=== PATIENT | male | born 1975 ===

== ENCOUNTER 2024-09-16 09:10 | Day surgery (SDC) | payer OTHER ==
[~2024-09-16] VITALS: Ht 185.4 cm; Wt 112.8 kg
[~2024-09-16 09:10] MED LIST: Lidocaine 2%-Epineph 1:100000 20 ML MDV ONE; Lidocaine HCl 2% 10 ML SDA ONE; NS 500 ML IV ONE
[2024-09-16] MEDS ORDERED: LISI20 PO (10:08)
[2024-09-16] MEDS ORDERED: HYDCHL25 PO (10:08)
[2024-09-16] MEDS ORDERED: ATOR20 PO (10:08)
[2024-09-16] MEDS ORDERED: ACYC400 PO (10:09)
[2024-09-16] MEDS ORDERED: Phentermine HCl15 MG PO (10:09)
[2024-09-16] MEDS ORDERED: VITAMIN D31250 MC2 PO (10:10)
[2024-09-16] MEDS ORDERED: NS 500 ML IV ONE (10:19)
--- NOTE | 2024-09-16 10:20 | NUR ---
09/16/24 1020 Mela Chen NO QUESTIONS OR CONCERNS AT THIS TIME.
[2024-09-16] MEDS ORDERED: propofoL 20 ML IV ONE (10:28)
== END 2024-09-16 12:15 | disposition home or self-care (01) ==
LOC: ORSCSDS 09:10
PROVIDERS: Orthopaedic Surgery
PROC: 01N54ZZ Release Median Nerve, Percutaneous Endoscopic Approach (ICD-10-PCS; principal; 2024-09-16 10:45)
DX: G56.03 Carpal tunnel syndrome, bilateral upper limbs (principal); E78.5 Hyperlipidemia, unspecified; G47.33 Obstructive sleep apnea (adult) (pediatric); I10 Essential (primary) hypertension; E66.9 Obesity, unspecified; Z68.32 Body mass index [BMI] 32.0-32.9, adult; Z87.891 Personal history of nicotine dependence; Z79.899 Other long term (current) drug therapy
CPT/HCPCS: J2003; J2704; J7040

== ENCOUNTER 2024-10-21 06:14 | Day surgery (SDC) | payer OTHER ==
[~2024-10-21] VITALS: Ht 185.4 cm; Wt 114.3 kg
[~2024-10-21 06:14] MED LIST changes: +ACYC400 PO; +ATOR20 PO; +HYDCHL25 PO; +LISI20 PO; -Lidocaine 2%-Epineph 1:100000 20 ML MDV ONE; -Lidocaine HCl 2% 10 ML SDA ONE; +Phentermine HCl15 MG PO; +VITAMIN D31250 MC2 PO
[2024-10-21] MEDS ORDERED: NS 500 ML IV ONE (06:42)
[2024-10-21] MEDS ORDERED: Midazolam HCl 1MG / ML 2ML Vial ONE (07:47)
== END 2024-10-21 08:30 | disposition home or self-care (01) ==
LOC: ORSCSDS 06:14
PROVIDERS: Orthopaedic Surgery
PROC: 01N54ZZ Release Median Nerve, Percutaneous Endoscopic Approach (ICD-10-PCS; principal; 2024-10-21 08:00)
DX: G56.02 Carpal tunnel syndrome, left upper limb (principal); I10 Essential (primary) hypertension; E78.5 Hyperlipidemia, unspecified; G47.30 Sleep apnea, unspecified; G47.33 Obstructive sleep apnea (adult) (pediatric); R13.10 Dysphagia, unspecified; E66.9 Obesity, unspecified; Z68.33 Body mass index [BMI] 33.0-33.9, adult; Z79.899 Other long term (current) drug therapy
CPT/HCPCS: J2250; J7040